=== PATIENT | female | born 1990 | race Hispanic/Latino ===

== ENCOUNTER 2017-04-16 11:40 | Emergency (ER) | payer OTHER ==
[~2017-04-16] VITALS: Ht 161.3 cm; Wt 70.0 kg
[~2017-04-16 11:40] MED LIST: AMOXICILLIN875 MG PO; FLONASE NASAL50 MCG
[2017-04-16 12:46] VITALS: BP 118/67
== END 2017-04-16 12:46 | disposition home or self-care (01) | DRG 951 ==
LOC: ED 11:40
DX: Z20.811 Contact with and (suspected) exposure to meningococcus (principal)

== ENCOUNTER 2018-05-20 07:17 | Emergency (ER) | payer OTHER ==
[~2018-05-20] VITALS: Ht 161.3 cm; Wt 86.0 kg
[2018-05-20 07:55] VITALS: BP 131/89
== END 2018-05-20 08:15 | disposition home or self-care (01) | DRG 951 ==
LOC: ED 07:17
DX: Z20.818 Contact with and (suspected) exposure to other bacterial communicable diseases (principal)

== ENCOUNTER → 2018-10-05 | Outpatient (REF) | payer OTHER ==
[2018-10-05 11:49] LABS: ALBUMIN 4.1 g/dL (3.2-5.0); ALKALINE PHOSPHATASE 61 u/l (38-126); ANION GAP 15 (6-22 (CALC)); BILIRUBIN, TOTAL 0.3 mg/dL (0.0-1.4); BUN 6 mg/dL (7-17); BUN/CREATININE RATIO 11 (12-20 (CALC)); CALCULATED LDLCHOLESTEROL 73 mg/dL (62-129 (CALC)); CARBON DIOXIDE 22 mmol/l (22-30); CHLORIDE 107 mmol/l (95-108); CREATININE 0.6 mg/dL (0.5-1.0); GFR > 60 ML/MIN (>=60 (CALC)); GFR FOR AFR.AMER. > 60 ML/MIN (>=60 (CALC)); HDL CHOLESTEROL 46 mg/dL (>=40); POTASSIUM 4.1 mmol/l (3.5-5.1); SGOT/AST 21 u/l (14-36); SODIUM 140 mmol/l (137-146); TOTAL CHOLESTEROL 137 mg/dl (0-199); TRIGLYCERIDES REFLEX TO dLDL 90 mg/dl (30-149); VLDL CHOLESTROL 18 mg/dl (2-29 (CALC))
[2018-10-05 12:08] LABS: HEMATOCRIT 34.2 % (37.0-47.0); HEMOGLOBIN 10.3 g/dl (12.0-16.0); IMMATURE GRANULOCYTES 0.3 % (0.0-5.0); MEAN CELL VOLUME 79.5 fL CALC (80.0-100.0); MEAN CORPUSCULAR HGB CONC 30.1 g/L CALC (32.0-36.0); NEUT# 5.51 thou/uL (2.00-7.15); RED BLOOD COUNT 4.3 mill/uL (4.20-5.60); RED CELL DISTRI WIDTH 17.4 % (11.5-15.5)
[2018-10-05 12:19] LABS: TSH, 3RD GENERATION 2.76 uIU/mL (0.47 - 4.68)
== END | disposition home or self-care (01) | DRG 951 ==
LOC: LAB 11:01
PROVIDERS: ATTEND Family Medicine
DX: Z00.00 Encounter for general adult medical examination without abnormal findings (principal)